=== PATIENT | male | born 1985 | race Two or more races ===

== ENCOUNTER 2018-03-13 08:55 | Emergency (ER) | payer OTHER ==
[~2018-03-13] VITALS: Ht 180.3 cm; Wt 77.1 kg
[2018-03-13 09:01] VITALS: BP 112/72
== END 2018-03-13 09:20 | disposition home or self-care (01) ==
LOC: ER 08:58
DX: M10.9 Gout, unspecified (principal); Z60.2 Problems related to living alone
CPT/HCPCS: 99282; A4606; Z7610

== ENCOUNTER 2018-10-04 22:09 | Emergency (ER) | payer OTHER ==
[~2018-10-04] VITALS: Ht 180.3 cm; Wt 73.0 kg
[2018-10-04 22:30] VITALS: BP 130/85
--- NOTE | 2018-10-04 23:00 | NUR ---
BIBSELF FROM HOME WITH GIRLFRIEND. TO ER BED 10. AAOX4. NAD NOTED, BBREATHING EVEN AND UNLABORED/ AMBULAORY. C/O ANAL PAIN X 2 DAYS INSIDE AND OUTSIDE THE ANUS. PT REPORTS SHARP BURNING PAIN 6/10 AT THIS TIME AND WORST WHEN HAVING BM. NO REPORTS OF DIARRHEA OR CONSTIPATION. NO NAUSEA OR VOMITING. PT HAS HISTORY OF INTERNAL HEMORRHOIDS. NO HEMORRHOIDS NOTED. AWAITING MD FOR BRENDA
== END 2018-10-05 00:07 | disposition home or self-care (01) ==
LOC: ER 22:15
DX: K60.2 Anal fissure, unspecified (principal); F10.10 Alcohol abuse, uncomplicated; Y90.9 Presence of alcohol in blood, level not specified; Z60.2 Problems related to living alone